=== PATIENT | male | born 1960 | race African-American/Black ===

== ENCOUNTER 2023-06-03 13:36 | Outpatient (CLI) | payer OTHER, SELFPAY ==
--- NOTE | ~2023-06-03 | MR_ITS ---
EXAMINATION: MR wrist LT wo con DATE: 06/03/2023 15:42 INDICATION: Left wrist soft tissue swelling. TECHNIQUE: Magnetic resonance imaging (MRI) of the wrist was performed without intravenous contrast. Sequences performed include coronal T1-weighted FSE, coronal PD-weighted FS FSE, axial PD-weighted FS FSE, axial PD-weighted FSE, sagittal PD-weighted FSE, and sagittal PD-weighted FS FSE. COMPARISON: None FINDINGS: Intrinsic ligaments: There is a partial tear of the proximal (membranous) component of scapholunate ligament. Lunotriquetr al ligament is intact. Triangular fibrocartilage complex (TFCC): The triangular fibrocartilage is normal. Extensor wrist: There is tenosynovitis involving the second and fourth extensor compartments. A skin marker overlies the fourth extensor compartment. There is a longitudinal split tear of extensor carpi ulnaris tendon. Flexor wrist: The flexor tendons are normal. Median nerve is normal. Guyon's canal: The ulnar nerve is normal. Bones/other: There is severe osteoarthritis of triscaphe joint and moderate osteoarthritis of first carpometacarpa l joint. There is mild osteoarthritis of distal radioulnar joint. IMPRESSION: 1. Tenosynovitis involving the second and fourth extensor compartments. 2. Longitudinal split tear of extensor carpi ulnaris tendon. 3. Polyarticular osteoarthritis. Reviewed, dictated and finalized at location A.
== END 2023-06-03 13:37 | disposition home or self-care (01) ==
DX: M19.032 Primary osteoarthritis, left wrist (principal)
CPT/HCPCS: 73221